=== PATIENT | male | born 1955 | race Caucasian/White ===

== ENCOUNTER 2019-01-19 18:21 | Emergency (ER) | payer OTHER ==
--- NOTE | 2019-01-19 18:36 | Emergency Department Report ---
Blank Doc - Documentation Documentation: This is a 63-year-old male that presents with chest pain and urinary symptoms. HX of ID. Maria G translation used during interview. This initial assessment/diagnostic orders/clinical plan/treatment(s) is/are subject to change based on patient's health status, clinical progression and re- assessment by fellow clinical providers in the ED. Further treatment and workup at subsequent clinical providers discretion. Patient/guardians urged not to elope from the ED as their condition may be serious if not clinically assessed and managed. Initial orders include: 1- Patient sent to MAIN ED for further evaluation and treatment 2- labs 3- CXR 4- EKG 5- UA
[2019-01-19 18:38] VITALS: BP 132/80
[2019-01-19 19:07] LABS: Basophils % (Auto) 0.4 % (0.0-1.8); Eosinophils # (Auto) 0.3 K/mm3 (0.0-0.4); Eosinophils % (Auto) 2.6 % (0.0-4.3); Hematocrit 44.3 % (35.5-45.6); Hemoglobin 15.4 gm/dl (11.8-15.2); Lymphocytes # (Auto) 2.7 K/mm3 (1.2-5.4); Lymphocytes % (Auto) 26.6 % (13.4-35.0); Mean Corpuscular HGB Conc 35 % (32-34); Mean Corpuscular Volume 90 fl (84-94); Monocytes # (Auto) 0.6 K/mm3 (0.0-0.8); Platelet Count 309 K/mm3 (140-440); Red Blood Count 4.92 M/mm3 (3.65-5.03); Red Cell Distribution Width 13.5 % (13.2-15.2)
[2019-01-19 19:20] LABS: BUN/Creatinine Ratio 20; Blood Urea Nitrogen 24 mg/dL (9-20); Calcium 9.5 mg/dL (8.4-10.2); Hemolysis Index 32; INR 0.93 (0.87-1.13)
[2019-01-19] MEDS ORDERED: ZOFRAN IV ONE (19:48)
[2019-01-19] MEDS ORDERED: NACL 0.9% 1000 ML 1,000 ML IV ONE (19:49)
--- NOTE | 2019-01-19 19:57 | XRay Report ---
PROCEDURE: XR CHEST ROUTINE 2V TECHNIQUE: PA and lateral views of the chest HISTORY: Chest Pain COMPARISONS: None FINDINGS: There is prominence of the interstitial markings in both lungs with peribronchial thickening. There appear to be patchy areas of pulmonary consolidation in the lower lung verma bilaterally. Atel ectasis versus infiltrates. There is no evidence of pneumothorax or pleural fluid collection. The cardiac silhouette is enlarged. The thoracic aorta is tortuous. The bony structures are unremarkable. IMPRESSION: 1. Enlarged cardiac silhouette. 2. Appearance of bilateral interstitial and airspace process. Infectious and noninfectious etiologies , to include CHF, need to be considered. Comparison with previous imaging studies or CT chest may be helpful for further evaluation. This document is electronically signed by Yashira Tuttle MD., January 19 2019 07:55:45 PM ET
[2019-01-19] MEDS ORDERED: LIDOCAINE VISCOUS 2% PO ONE (19:59)
[2019-01-19] MEDS ORDERED: ALUM-MAG HYDROX-SIMETH 200-200-20MG/5ML PO ONE (19:59)
[2019-01-19] MEDS ORDERED: TORADOL IV ONE (19:59)
--- NOTE | 2019-01-19 20:10 | Emergency Department Report ---
ED General Adult HPI - General Chief complaint: Chest Pain Stated complaint: EVAL FOR CHEST PAIN Time Seen by Provider: 01/19/19 18:33 Source: patient Mode of arrival: Ambulatory Limitations: Language Barrier - History of Present Illness Initial comments: This is a 63-year-old male that presents with chest pain and urinary symptoms. HX of SC. pain in 5/10 radiating from right flank to RUQ and epigastric pt has hx of HTN, HDL, and SC , pain is exacerbated by movement and voiding pt does endorse urinary urgency frequency and dysuria denies hematuria , no fever no chills no n/v Onset/Timin -: week(s) Radiation: back Severity scale (0 -10): 5 Quality: burning Consistency: intermittent Improves with: none Worsens with: other (urination) Associated Symptoms: chest pain, other (dysuria ) Treatments Prior to Arrival: none - Related Data Previous Rx's Medication Instructions Recorded Last Taken Type ALBUTEROL Inhaler(NF) [VENTOLIN 2 puff IH Q4H PRN #1 inha 01/20/19 Unknown Rx Inhaler(NF)] Acetaminophen [Tylenol Extra 1,000 mg PO QID PRN #30 tablet 01/20/19 Unknown Rx Strength] Azithromycin [Zithromax Z-OLAYINKA] 250 mg PO DAILY #6 tab 01/20/19 Unknown Rx Benzonatate [Tessalon Perles] 100 mg PO Q8HR PRN #30 capsule 01/20/19 Unknown Rx Allergies Allergy/AdvReac Type Severity Reaction Status Date / Time No Known Allergies Allergy Unverified 01/19/19 18:21 ED Review of Systems ROS: Stated complaint: EVAL FOR CHEST PAIN Other details as noted in HPI Constitutional: denies: chills, fever Eyes: denies: eye pain, eye discharge, vision change ENT: denies: ear pain, throat pain, congestion Respiratory: denies: cough, shortness of breath, wheezing Cardiovascular: chest pain (epigastric pain ) Endocrine: no symptoms reported Gastrointestinal: denies: abdominal pain, nausea, vomiting, diarrhea Genitourinary: urgency, dysuria, frequency, hematuria. denies: discharge, testicular pain, testicular mass Musculoskeletal: denies: back pain, joint swelling, arthralgia Skin: denies: rash, lesions Neurological: denies: headache, weakness, paresthesias Psychiatric: denies: anxiety, depression Hematological/Lymphatic: denies: easy bleeding, easy bruising ED Past Medical Hx - Past Medical History Hx Hypertension: Yes Hx Heart Attack/AMI: Yes (09/28) - Surgical History Past Surgical History?: No - Social History Smoking Status: Never Smoker Substance Use Type: None - Medications Home Medications: Home Medications Medication Instructions Recorded Confirmed Last Taken Type ALBUTEROL Inhaler(NF) [VENTOLIN 2 puff IH Q4H PRN #1 inha 01/20/19 Unknown Rx Inhaler(NF)] Acetaminophen [Tylenol Extra 1,000 mg PO QID PRN #30 tablet 01/20/19 Unknown Rx Strength] Azithromycin [Zithromax Z-OLAYINKA] 250 mg PO DAILY #6 tab 01/20/19 Unknown Rx Benzonatate [Tessalon Perles] 100 mg PO Q8HR PRN #30 capsule 01/20/19 Unknown Rx ED Physical Exam - General Limitations: Language Barrier General appearance: alert, in no apparent distress - Head Head exam: Present: atraumatic, normocephalic - Eye Eye exam: Present: normal appearance, PERRL, EOMI Pupils: Present: normal accommodation - ENT ENT exam: Present: mucous membranes moist - Neck Neck exam: Present: normal inspection - Respiratory Respiratory exam: Present: normal lung sounds bilaterally. Absent: respiratory distress, wheezes, stridor, chest wall tenderness - Cardiovascular Cardiovascular Exam: Present: regular rate, normal rhythm. Absent: systolic murmur, diastolic murmur, rubs, gallop - GI/Abdominal GI/Abdominal exam: Present: soft, normal bowel sounds. Absent: distended, tenderness, guarding, rebound, rigid, bruit, hernia - Rectal Rectal exam: Present: deferred - Extremities Exam Extremities exam: Present: normal inspection, full ROM, normal capillary refill. Absent: tenderness, pedal edema, joint swelling, calf tenderness - Back Exam Back exam: Present: normal inspection, full ROM. Absent: tenderness, CVA tenderness (R), CVA tenderness (L), rash noted - Neurological Exam Neurological exam: Present: alert, oriented X3, CN II-XII intact, normal gait - Psychiatric Psychiatric exam: Present: normal affect, normal mood - Skin Skin exam: Present: warm, dry, intact, normal color. Absent: rash ED Course Vital Signs 01/19/19 01/19/19 18:35 20:10 Temperature 97.8 F Pulse Rate 78 Respiratory 16 16 Rate Blood Pressure 132/80 O2 Sat by Pulse 96 Oximetry ED Medical Decision Making - Lab Data Result diagrams: 01/19/19 18:55 01/19/19 18:55 Labs 01/19/19 01/19/19 01/19/19 18:55 18:55 18:55 WBC 10.1 RBC 4.92 Hgb 15.4 H Hct 44.3 MCV 90 MCH 31 MCHC 35 H RDW 13.5 Plt Count 309 Lymph % (Auto) 26.6 Kidder % (Auto) 6.0 Eos % (Auto) 2.6 Baso % (Auto) 0.4 Lymph # 2.7 Kidder # 0.6 Eos # 0.3 Baso # 0.0 Seg Neutrophils % 64.4 Seg Neutrophils # 6.5 PT 13.0 INR 0.93 APTT 27.0 Sodium 137 Potassium 3.8 Chloride 97.5 L Carbon Dioxide 24 Anion Gap 19 BUN 24 H Creatinine 1.2 Estimated GFR > 60 BUN/Creatinine Ratio 20 Glucose 119 H Calcium 9.5 Troponin T < 0.010 NT-Pro-B Natriuret Pep Urine Color Urine Turbidity Urine pH Ur Specific Crawford Urine Protein Urine Glucose (UA) Urine Ketones Urine Blood Urine Nitrite Urine Bilirubin Urine Urobilinogen Ur Leukocyte Esterase Urine WBC (Auto) Urine RBC (Auto) Urine Mucus 01/19/19 01/19/19 01/19/19 21:00 21:07 23:38 WBC RBC Hgb Hct MCV MCH MCHC RDW Plt Count Lymph % (Auto) Kidder % (Auto) Eos % (Auto) Baso % (Auto) Lymph # Kidder # Eos # Baso # Seg Neutrophils % Seg Neutrophils # PT INR APTT Sodium Potassium Chloride Carbon Dioxide Anion Gap BUN Creatinine Estimated GFR BUN/Creatinine Ratio Glucose Calcium Troponin T < 0.010 NT-Pro-B Natriuret Pep 543.4 Urine Color Yellow Urine Turbidity Clear Urine pH 5.0 Ur Specific Crawford 1.031 H Urine Protein 30 mg/dl Urine Glucose (UA) Neg Urine Ketones Neg Urine Blood Neg Urine Nitrite Neg Urine Bilirubin Neg Urine Urobilinogen < 2.0 Ur Leukocyte Esterase Neg Urine WBC (Auto) 1.0 Urine RBC (Auto) 3.0 Urine Mucus Few - Radiology Data Radiology results: report reviewed, image reviewed (review is Andree with) cc: CONI MERAZ NP PROCEDURE: CT ABDOMEN PELVIS WO CON TECHNIQUE: Computerized axial tomography of the abdomen and pelvis was performed without intravenous contrast. This study is performed without intravascular contrast material and its sensitivity for abdominal and pelvic pathology, including neoplasms, inflammation, abscess, free fluid, thrombosis, arterial dissection and infarction, is reduced compared with a contrast enhanced study. CT DOSE LENGTH PRODUCT: 905 mGycm HISTORY: flank/abd pain COMPARISONS: None . FINDINGS: Cardiomegaly is noted. Thickening of interstitial septa is noted most likely representing interstitial fibrosis. Liver, spleen pancreas and adrenal glands are within normal limits. Bilateral kidneys are unremarkable without calculi or hydronephrosis. Urinary bladder is partially filled. Aorta is of normal caliber. There is no free fluid or free air. Gallbladder is unremarkable. Small bowel loops are within normal limits. Appendix is normal. Mild degree degenerative changes are noted involving the lumbar spine. Vertebral height is normal. IMPRESSION: No acute intra-abdominal or pelvic pathology as visualized on this noncontrast study Cardiomegaly This document is electronically signed by Radu So MD., January 19 2019 09:47:55 PM ET Transcribed By: [facility] Dictated By: RADU SO Electronically Authenticated By: RADU SO Signed Date/Time: 01/19/192148 DD/ 39 TD/TT: 01/19/192139 XRay Report Signed Patient: CARRI EDGAR MR#: [id number] : 1955 Acct:[id number] Age/Sex: 63 / M ADM Date: 01/19/19 Loc: ED Attending Dr: Ordering Physician: AKI JOHNSON NP Date of Service: 01/19/19 Procedure(s): XR chest routine 2V Accession Number(s): [id number] cc: AKI JOHNSON NP Fluoro Time In Minutes: PROCEDURE: XR CHEST ROUTINE 2V TECHNIQUE: PA and lateral views of the chest HISTORY: Chest Pain COMPARISONS: None FINDINGS: There is prominence of the interstitial markings in both lungs with peribronchial thickening. There appear to be patchy areas of pulmonary consolidation in the lower lung verma bilaterally. Atelectasis versus infiltrates. There is no evidence of pneumothorax or pleural fluid collection. The cardiac silhouette is enlarged. The thoracic aorta is tortuous. The bony structures are unremarkable. IMPRESSION: 1. Enlarged cardiac silhouette. 2. Appearance of bilateral interstitial and airspace process. Infectious and noninfectious etiologies, to include CHF, need to be considered. Comparison with previous imaging studies or CT chest may be helpful for further evaluation. This document is electronically signed by Yashira Tuttle MD., January 19 2019 07:55:45 PM ET Transcribed By: ED Dictated By: YASHIRA TUTTLE MD Electronically Authenticated By: YASHIRA TUTTLE MD Signed Date/Time: 01/19/191956 DD/ 33 TD/TT: 01/19/191933 - Medical Decision Making pt refuses interpreture prefers daughter which is reasonable, EKG: NSR IVCD , hr: [address] elevated SC, no ecopy , ekg interp by ed attendig, cxr: mild infiltrates tx with rocephin IM will dc with rx for azithromycin,ct abd pelvis n o renal stones n acute abnormalities, labs normal: BNP: 549, trop: <0.01 x 2, cbc, cmp , pt, ptt are all normal, Heart score is 2 for hx and complaint, pt currently taking linsinopril, amlodipine, This is a 63 y/o male with presents dysuria frequency x 1 week secondary complaint of epigstric pain pt has hx of htn, hld, and SC states new to [place] wants to be checked out no cp noted at this time. no hematuria no sob no fever or chills no n/v dysuria with voiding only on penile discharge . plan dx with Cap and dysuria follow up with pcp given referral to Dr. Emanuel and [facility] , pt is pain free at this time no sob on wheezing no peripheral edema, pt will be dc to home in stable condition at this time. Critical care attestation.: If time is entered above; I have spent that time in minutes in the direct care of this critically ill patient, excluding procedure time. ED Disposition Clinical Impression: Dysuria CAP (community acquired pneumonia) Qualifiers: Laterality: right Lung location: upper lobe of lung Qualified Code(s): J18.1 - Lobar pneumonia, unspecified organism Disposition: DC-01 TO HOME OR SELFCARE Is pt being admited?: No Does the pt Need Aspirin: No Condition: Stable Instructions: Community-acquired Pneumonia (ED), Dysuria (ED) Prescriptions: Benzonatate [Tessalon Perles] 100 mg PO Q8HR PRN #30 capsule PRN Reason: Cough Acetaminophen [Tylenol Extra Strength] 1,000 mg PO QID PRN #30 tablet PRN Reason: pain ALBUTEROL Inhaler(NF) [VENTOLIN Inhaler(NF)] 2 puff IH Q4H PRN #1 inha PRN Reason: shortness of breath, wheezing Azithromycin [Zithromax Z-OLAYINKA] 250 mg PO DAILY #6 tab Referrals: JAVED EMANUEL MD [Staff Physician] - 3-5 Days [facility] [Outside] - 3-5 Days Forms: Work/School Release Form(ED) Time of Disposition: 01:40 Print Language: THAI
[2019-01-19] MEDS ORDERED: ROCEPHIN/NS 1 GM/50 ML 1 GM/50 ML BAG IV ONE (20:56)
--- NOTE | 2019-01-19 21:49 | Cat Scan Report ---
PROCEDURE: CT ABDOMEN PELVIS WO CON TECHNIQUE: Computerized axial tomography of the abdomen and pelvis was performed without intravenous contrast. This study is performed without intravascular contrast material and its sensitivity for ab dominal and pelvic pathology, including neoplasms, inflammation, abscess, free fluid, thrombosis, art erial dissection and infarction, is reduced compared with a contrast enhanced study. CT DOSE LENGTH PRODUCT: 905 mGycm HISTORY: flank/abd pain COMPARISONS: None . FINDINGS: Cardiomegaly is noted. Thickening of interstitial septa is noted most likely representing interstitia l fibrosis. Liver, spleen pancreas and adrenal glands are within normal limits. Bilateral kidneys are unremarkable without calculi or hydronephrosis. Urinary bladder is partially filled. Aorta is of nor mal caliber. There is no free fluid or free air. Gallbladder is unremarkable. Small bowel loops are w ithin normal limits. Appendix is normal. Mild degree degenerative changes are noted involving the lum bar spine. Vertebral height is normal. IMPRESSION: No acute intra-abdominal or pelvic pathology as visualized on this noncontrast study Cardiomegaly This document is electronically signed by Wayne So MD., January 19 2019 09:47:55 PM ET
[2019-01-20 00:18] LABS: Bilirubin,Urine NEG (Negative); Blood,Urine NEG (Negative); Color,Urine Yellow (Yellow); Mucus,Urine FEW /HPF; Urobilinogen,Urine < 2.0 mg/dL (<2.0)
== END 2019-01-20 01:51 | disposition home or self-care (01) ==
LOC: ED 18:21
DX: R30.0 Dysuria (principal); J18.1 Lobar pneumonia, unspecified organism; I10 Essential (primary) hypertension; I25.2 Old myocardial infarction; Z79.899 Other long term (current) drug therapy
CPT/HCPCS: 36415; 71046; 74176; 80048; 81001; 83880; 84484; 85025; 85610; 85730; 93005; 93010; 96365; 96375; 99285; J0696; J1885; J2405; J7030